=== PATIENT | female | born 1990 | race Caucasian/White ===

== ENCOUNTER 2017-01-22 22:36 | Emergency (ER) | payer MEDICAID ==
[2017-01-22 22:55] VITALS: BP 119/79; PULSE 104; TEMP 98.1; O2SAT 99
[2017-01-22 23:18] LABS: RBC URINE 2 /hpf (0-3); TRANSITIONAL EPITHIAL 1 /hpf (0-3); URINE BACTERIA RARE (<OCC); URINE BILIRUBIN NEGATIVE (NEGATIVE); URINE BLOOD NEGATIVE (NEGATIVE); URINE COLOR Yellow (YELLOW); URINE GLUCOSE (UA) NORMAL (Normal); URINE KETONE NEGATIVE (NEGATIVE); URINE PROTEIN NEGATIVE (NEGATIVE); URINE UROBILINOGEN NORMAL mg/dL (0.2-1.0); WBC URINE 4 /hpf (0-5)
[2017-01-22 23:20] LABS: URINE LEUKOCYTE ESTERASE NEGATIVE Leu/uL (Negative)
--- NOTE | 2017-01-23 00:56 | C.PDOC ---
History Of Present Illness 26 year old female presents to the ED with complaints of nausea for the past 4 days. Patient states her LMP was in November and notes she has a history of irregular menses since giving in 2012. Denies fever, chills, vomiting, abdominal pain, urinary symptoms, or any other complaints at this time. Time Seen by Provider: 01/22/17 22:58 Chief Complaint (Nursing): Female Genitourinary History Per: Patient History/Exam Limitations: no limitations Onset/Duration Of Symptoms: Days Current Symptoms Are (Timing): Still Present Severity: Mild Associated Symptoms: Nausea, Vomiting. denies: Fever, Chills, Diarrhea, Urinary Symptoms Abnormal Vaginal Bleeding: No Past Medical History Reviewed: Historical Data, Nursing Documentation, Vital Signs Vital Signs: Last Vital Signs Temp 98.1 F 01/22/17 22:51 Pulse 104 H 01/22/17 22:51 Resp 20 01/23/17 01:01 BP 119/79 01/22/17 22:51 Pulse Ox 99 01/23/17 07:15 - Medical History PMH: Asthma Surgical History: Appendectomy, Family History: States: Unknown Family Hx - Social History Hx Alcohol Use: No Hx Substance Use: No - Immunization History Hx Tetanus Toxoid Vaccination: No Hx Influenza Vaccination: No Hx Pneumococcal Vaccination: No Review Of Systems Except As Marked, All Systems Reviewed And Found Negative. Constitutional: Negative for: Fever, Chills Gastrointestinal: Positive for: Nausea. Negative for: Vomiting, Abdominal Pain , Diarrhea Genitourinary: Negative for: Dysuria, Vaginal Bleeding Musculoskeletal: Negative for: Back Pain Physical Exam - Physical Exam Appears: Non-toxic, No Acute Distress Skin: Normal Color, Warm, Dry Head: Atraumatic, Normacephalic Eye(s): bilateral: Normal Inspection Oral Mucosa: Moist Chest: Symmetrical Cardiovascular: Rhythm Regular Respiratory: Normal Breath Sounds, No Accessory Muscle Use Gastrointestinal/Abdominal: Soft, No Tenderness, No Distention, No Guarding, No Rebound Extremity: Normal ROM, No Deformity Neurological/Psych: Oriented x3, Normal Speech, Normal Cognition ED Course And Treatment O2 Sat by Pulse Oximetry: 99 (Room air) Pulse Ox Interpretation: Normal Progress Note: Urinalysis ordered and reviewed. Patient treated with Zofran. Disposition Counseled Patient/Family Regarding: Diagnosis, Need For Followup, Rx Given - Disposition Referrals: Non [facility] Provider, [Primary Care Provider] - [facility] [Outside] Disposition: HOME/ ROUTINE Disposition Time: 01:00 Condition: GOOD Additional Instructions: Please take Zofran as directed. Follow up in medical clinic in next one-two days. Return to ER for any worsening symptoms, fever, abdominal pain or any other concerns. Prescriptions: Ondansetron ODT [Zofran ODT] 4 mg PO TID #9 odt Instructions: Acute Nausea and Vomiting (ED) Forms: General Discharge Instructions - Clinical Impression Clinical Impression: Nausea alone - PA / EDUCATION PARAPROFESSIONAL / Resident Statement MD/DO has reviewed & agrees with the documentation as recorded. - Scribe Statement The provider has reviewed the documentation as recorded by the Scribe Ismael Augustine. All medical record entries made by the Scribe were at my direction and personally dictated by me. I have reviewed the chart and agree that the record accurately reflects my personal performance of the history, physical exam, medical decision making, and the department course for this patient. I have also personally directed, reviewed, and agree with the discharge instructions and disposition.
[2017-01-23 01:02] VITALS: RESP 20
== END 2017-01-23 01:01 | disposition home or self-care (01) ==
LOC: C.ER 22:36 → SUPCPDRO 22:36 → C.ER 01-23 01:01
DX: R11.0 Nausea (principal)

== ENCOUNTER 2017-02-06 15:26 | Emergency (ER) | payer MEDICAID ==
[2017-02-06 15:32] VITALS: RESP 18; TEMP 98.3; O2SAT 98
[2017-02-06 16:03] LABS: RBC URINE 7 /hpf (0-3); URINE BACTERIA MANY (<OCC); URINE BILIRUBIN NEGATIVE (NEGATIVE); URINE COLOR Yellow (YELLOW); URINE GLUCOSE (UA) NORMAL (Normal); URINE KETONE NEGATIVE (NEGATIVE); URINE LEUKOCYTE ESTERASE 3+ Leu/uL (Negative); URINE PROTEIN NEGATIVE (NEGATIVE); URINE UROBILINOGEN NORMAL mg/dL (0.2-1.0); WBC URINE 2 /hpf (0-5)
[2017-02-06 16:04] LABS: URINE BLOOD 1+ (NEGATIVE)
--- NOTE | 2017-02-06 16:18 | C.PDOC ---
History Of Present Illness 26 yo female come in for evaluation of Left earache for past 2 days, (+) ear discharge today AM. Pt admits, " had cold sx week ago and after that developed earache". Pt also request urine evaluation. Pt reports, gradual worsening of pain on urination, urinary frequency. Otherwise, pt denies fever, chills., headache, dizziness, vertigo, drooling, dysphagia, dyspnea, cough, SOB, wheezing , abd. pain, V/D, vaginal irritation or discharge, hematuria. Ambulate to Ed for evaluation, not in any apparent distress. Time Seen by Provider: 02/06/17 15:40 Chief Complaint (Nursing): Female Genitourinary History Per: Patient History/Exam Limitations: None Onset/Duration Of Symptoms: Days Current Symptoms Are (Timing): Still Present Quality (Ear): Discharge Symptoms Have Been: Continuous Severity: Mild Anticoagulant/Antiplatlet Use?: No Past Medical History Reviewed: Historical Data, Nursing Documentation, Vital Signs Vital Signs: Last Vital Signs Temp 98.3 F 02/06/17 15:30 Pulse 88 02/06/17 16:43 Resp 18 02/06/17 16:43 BP 118/83 02/06/17 16:43 Pulse Ox 98 02/06/17 16:47 - Medical History PMH: Asthma Surgical History: Appendectomy, Family History: States: Unknown Family Hx - Social History Hx Alcohol Use: No Hx Substance Use: No - Immunization History Hx Tetanus Toxoid Vaccination: No Hx Influenza Vaccination: No Hx Pneumococcal Vaccination: No Review Of Systems Except As Marked, All Systems Reviewed And Found Negative. Constitutional: Negative for: Fever, Chills ENT: Positive for: Ear Pain (left ear pain and discharge). Negative for: Throat Pain Respiratory: Negative for: Shortness of Breath, Wheezing Gastrointestinal: Negative for: Vomiting, Abdominal Pain, Diarrhea Genitourinary: Positive for: Dysuria, Frequency. Negative for: Hematuria, Vaginal Discharge Neurological: Negative for: Headache, Dizziness Physical Exam - Physical Exam Appears: Well, Non-toxic, No Acute Distress Skin: Normal Color, Warm, Dry, No Rash Eye(s): bilateral: Normal Inspection Ear(s): Left: TM Erythema, Other (scant greenish ear canal draining.), Right: Normal Nose: Normal, No Discharge Oral Mucosa: Moist, No Drooling Throat: Normal, No Erythema, No Exudate, No Drooling Neck: Normal, Normal ROM, Supple Cardiovascular: Rhythm Regular Respiratory: Normal Breath Sounds, No Stridor, No Wheezing Gastrointestinal/Abdominal: Soft, Tenderness (mild suprapubic tenderness.), No Distention, No Guarding, No Rebound Back: Normal Inspection, No CVA Tenderness Extremity: Normal ROM, No Tenderness, No Pedal Edema Neurological/Psych: Oriented x3, Normal Speech ED Course And Treatment O2 Sat by Pulse Oximetry: 98 (on room air) Pulse Ox Interpretation: Normal Progress Note: On re-evaluation, pt is afebrile, hemodynamicaly stable. Non- toxic. Tolerate PO well in ED. Pulseox 98% RA. ENT: (+)exam c/w left otitis media. neck: (-) meningeal sign,. Lungs: CTA B/L, BS equal B/L. Abd: benign, (-) guarding, (-) rebound, (-) RLQ tenderness. UA results review and c/w early UTI, preg (-). Abx, analgesics given. Pt advised. ref. to f/u with PMD, ENT in 1-2 days for re-eval. return if any worsening or new changes. Disposition Counseled Patient/Family Regarding: Studies Performed, Diagnosis, Need For Followup, Rx Given - Disposition Referrals: [facility] [Outside] Disposition: HOME/ ROUTINE Disposition Time: 16:15 Condition: STABLE Additional Instructions: Encourage fluids Cranberry supplement Keep ear dry Take medication as prescribed Follow up with PMD In 2-3 days for re-evaluation. Return to ED if nay worsening or new changes. Prescriptions: Ciprofloxacin [Cipro] 1 tab PO BID #14 tab Fluconazole [Diflucan] 100 mg PO DAILY #2 tab Instructions: Otitis Media (ED), Urinary Tract Infection in Women (ED) - Clinical Impression Clinical Impression: Otitis media, UTI (urinary tract infection) - PA / HEAVY MOBILE EQUIPMENT REPAIRER / Resident Statement MD/DO has reviewed & agrees with the documentation as recorded. - Scribe Statement The provider has reviewed the documentation as recorded by the Lenaibbrian Mann All medical record entries made by the Scribe were at my direction and personally dictated by me. I have reviewed the chart and agree that the record accurately reflects my personal performance of the history, physical exam, medical decision making, and the department course for this patient. I have also personally directed, reviewed, and agree with the discharge instructions and disposition.
[2017-02-06 16:44] VITALS: BP 118/83; PULSE 88
== END 2017-02-06 16:44 | disposition home or self-care (01) ==
LOC: C.ER 15:26
DX: H66.92 Otitis media, unspecified, left ear (principal); N39.0 Urinary tract infection, site not specified